=== PATIENT | male | born 1990 | race Two or more races ===

== ENCOUNTER 2019-11-01 17:39 | Emergency (ER) | payer SELFPAY ==
[~2019-11-01] VITALS: Ht 172.7 cm; Wt 98.6 kg
[2019-11-01 17:53] VITALS: BP 147/90
[2019-11-01] MEDS ORDERED: FLUORESCEIN OPHTHALMIC 1 MG STRIP LEFTEYE ONE (18:30)
[2019-11-01] MEDS ORDERED: PROPARACAINE OPHTH 0.5%, 15ML LEFTEYE ONE (18:30)
== END 2019-11-01 19:08 ==
LOC: ED 18:36
DX: T15.02XA Foreign body in cornea, left eye, initial encounter (principal); X58.XXXA Exposure to other specified factors, initial encounter; Y93.89 Activity, other specified; Y92.89 Other specified places as the place of occurrence of the external cause; Y99.8 Other external cause status
CPT/HCPCS: 65222; 99284